=== PATIENT | male | born 2005 | race Caucasian/White ===

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

== ENCOUNTER 2025-11-12 11:55 | Emergency (ER) | payer BC, SELFPAY ==
[2025-11-12 12:13] VITALS: BP 124/72; PULSE 67; RESP 16; TEMP 36.7; O2SAT 100; BMI 19.5
--- NOTE | 2025-11-12 13:09 | ED.NAVMDI ---
HPI - Nausea/Vomiting/Diarrhea General Chief complaint: Nausea/Vomiting/Diarrhea Stated complaint: not feeling well for 1 wk, pale, nausea Time Seen by Provider: 11/12/25 13:09 Source: patient Mode of arrival: Ambulatory History of Present Illness HPI Narrative: Patient is a 20-year-old male history of ADHD presenting today with ongoing nausea. He reports that for the last 1 week every morning he wakes up he is feeling nauseous. It subsides by the afternoon. He does not throw up. He has had some loose stool. He has some epigastric pain no chest pain no lower abdominal pain. He had 1 fever but has not had a fever since. He is tolerating liquids and food. He would really like a work note because he has missed work. He is not actively nauseous he is not actively having pain. Related Data Previous Rx's ?Medication ?Instructions ?Recorded methylphenidate HCl 10 mg 10 mg PO BID #60 caps 02/04/23 capsule,extended release (40-60) sprinkle methylphenidate HCl 10 mg 10 mg PO BID ADHD #60 caps 02/04/23 capsule,extended release (40-60) sprinkle naloxone 4 mg/actuation nasal spray 4 mg intranasal Q2M PRN opioid 02/24/23 overdose #2 ea methylphenidate HCl 18 mg 18 mg PO QAM #30 tabs 04/29/23 tablet,extended release 24 hr (Concerta) omeprazole 20 mg capsule,delayed 20 mg PO DAILY #30 caps 11/12/25 release ondansetron 4 mg disintegrating 4 mg PO Q8H PRN nausea and 11/12/25 tablet vomiting #10 tabs Allergies Allergy/AdvReac Type Severity Reaction Status Date / Time No Known Drug Allergies Allergy Verified 11/12/25 12:12 Patient History Medical History Pectus excavatum History of cardiac arrhythmia ADHD Personal history of ECMO Mass of left inguinal region Immunization deficiency Surgical History H/O cardiac radiofrequency ablation tobacco type: cigarettes and vaping alcohol intake frequency: a few times a month Alcohol type: beer Exam Initial Vital Signs Initial Vital Signs: Vital Signs Temperature 98.0 F 11/12/25 12:13 Pulse Rate 67 11/12/25 12:13 Respiratory Rate 16 11/12/25 12:13 Blood Pressure 124/72 11/12/25 12:13 Pulse Oximetry 100 11/12/25 12:13 Oxygen Delivery Method Room Air 11/12/25 12:13 GENERAL: Alert very well-appearing 20-year-old male and in no acute distress. CARDIOVASCULAR: Regular rate and rhythm without murmurs, rubs or gallops. RESPIRATORY: Breath sounds equal bilaterally, no wheezes rales or rhonchi. ABDOMEN: Soft, nontender. Normoactive bowel sounds all 4 quadrants. No guarding or rebound. No lower abdominal pain no right lower quadrant pain negative Trimble's sign no epigastric pain EXTREMITIES: Normal range of motion, no clubbing or edema. Neurovascularly intact NEUROLOGICAL: Alert and oriented x4.Normal gait and speech. Cranial nerves II through XII grossly intact. SKIN: Warm, dry, no laceration, no petechiae, no rashes or lesions. Course Vital Signs Vital signs: Vital Signs - 8 hr 11/12/25 12:13 Temperature 98.0 F Pulse Rate 67 Respiratory Rate 16 Blood Pressure 124/72 Pulse Oximetry 100 Oxygen Delivery Method Room Air MDM - Nausea/Vomiting/Diarrhea MDM Narrative Medical decision making narrative: Patient is a 20-year-old male presenting today with ongoing nausea which subsides by the afternoons. He is tolerating p.o. fluids his vitals are stable. Abdomen is benign soft nontender. He appears well. Sounds like he needs a work note. No concern at this time for a cholecystitis or choledocholithiasis. He is not tender in his lower abdomen at all there is low suspicion for appendicitis. At this time I discussed with him we will give him his work no and anti nausea medication however if this is persisting then he will need further evaluation and blood work. He also admits to using marijuana daily which we discussed maybe contributing factor. Discharge Plan Departure Patient Disposition: Home Clinical Impression: Nausea Instructions: DI for Nausea -- Adult Activity Restrictions/Additional Instructions: *You have been diagnosed with nausea *What to do: At this time is unclear what is causing your nausea. If you continue to feel nauseous I recommend that you have blood work and re-evaluation. It should start to subside *Continue to take medications as directed Zofran 4 mg every 8 hours if needed for nausea or vomiting Omeprazole 20 mg once a day in the morning *Follow up with your primary care provider in 2-3 days or call [phone] *Return to ER if you should have ongoing nausea increasing abdominal pain persistent vomiting fevers or any new, worsening or concerning symptoms Prescriptions: New omeprazole 20 mg capsule,delayed release(DR/EC) 20 mg PO DAILY Qty: 30 0RF ondansetron 4 mg tablet,disintegrating 4 mg PO Q8H PRN (Reason: nausea and vomiting) Qty: 10 0RF No Action methylphenidate HCl [Concerta] 18 mg tablet extended release 24hr 18 mg PO QAM Qty: 30 0RF methylphenidate HCl 10 mg cap,ER sprinkle,biphasic 40-60 10 mg PO BID Qty: 60 0RF methylphenidate HCl 10 mg cap,ER sprinkle,biphasic 40-60 10 mg PO BID Qty: 60 0RF Rx Instructions: 1 capsule twice a day naloxone 4 mg/actuation spray,non-aerosol 4 mg intranasal Q2M PRN (Reason: opioid overdose) Qty: 2 0RF Rx Instructions: spray 1 dose into ONE nostril; alternate nostrils w each dose until help arrives Referrals: Padmini Richards MD [Primary Care Provider, Pediatrics] Stand Alone Forms: Patient Portal/API, Work Release Note
== END 2025-11-12 13:23 | disposition home or self-care (01) ==
PROVIDERS: Emergency Provider Emergency Medicine; PCP Pediatrics
DX: R11.2 Nausea with vomiting, unspecified (principal); R19.7 Diarrhea, unspecified; R10.13 Epigastric pain
CPT/HCPCS: 99281